=== PATIENT | male | born 1980 | race Caucasian/White ===

== ENCOUNTER → 2016-12-03 | Outpatient (CLI) | payer OTHER ==
--- NOTE | 2016-12-03 16:24 | MR ---
EXAMINATION TYPE: MR lumbar spine wo con DATE OF EXAM: 12/03/2016 2:36 PM COMPARISON: Radiographs of the lumbar spine dated 11/01/2014 HISTORY: Low back pain TECHNIQUE: Multiplanar, multisequence images of the lumbar spine were acquired. L1-L2: Normal disc appearance without desiccation. No herniation, protrusion or disc bulging. No ca nal stenosis is present. Foramina are patent bilaterally. L2-L3: Normal disc appearance without desiccation. No herniation, protrusion or disc bulging. No ca nal stenosis is present. Foramina are patent bilaterally. L3-L4: Normal disc appearance without desiccation. No herniation, protrusion or disc bulging. No ca nal stenosis is present. Foramina are patent bilaterally. L4-L5: Normal disc appearance without desiccation. No herniation, protrusion or disc bulging. No ca nal stenosis is present. Foramina are patent bilaterally. L5-S1: There is a left central disc herniation, extrusion, extending cranially approximately 5 mm. No free fragment is seen. There is resultant mild central canal stenosis. This disc herniation does not affect the exiting nerve root and abuts the forming nerve root. Herniation is superimposed upon a br oad-based disc bulge. Disc desiccation of the annulus is seen. No evidence of neuroforaminal stenosis . Lumbar segments are intact. No paraspinal masses are identified. Conus medullaris has a normal appe arance. Bone marrow signal is unremarkable IMPRESSION: Left central disc herniation at L5-S1 resulting in mild spinal canal stenosis.
== END | disposition home or self-care (01) ==
LOC: RADMRIMAIN 14:06
PROVIDERS: ATTEND Nurse Practitioner Acute Care
DX: M48.07 Spinal stenosis, lumbosacral region (principal); M51.27 Other intervertebral disc displacement, lumbosacral region
CPT/HCPCS: 72148

== ENCOUNTER → 2019-04-10 | Outpatient (CLI) | payer OTHER ==
--- NOTE | 2019-04-10 13:15 | XR ---
Chest x-ray with right RIBS HISTORY: Right rib pain for 3 days Frontal view of the chest, 4 views of the right ribs submitted. No comparisons There is elevation of the right hemidiaphragm. No evident airspace disease, pneumothorax, or pleural effusion. Cardiomediastinal silhouette, pulmonary vascularity and anjali within normal limits. No evide nt displaced rib fracture IMPRESSION: No acute rib abnormality, bone scan may be of benefit. Elevated right hemidiaphragm.
== END | disposition home or self-care (01) ==
LOC: RADXRYALE 09:37
PROVIDERS: ATTEND Internal Medicine
DX: Q79.1 Other congenital malformations of diaphragm (principal)

== ENCOUNTER → 2019-04-30 | Outpatient (CLI) | payer SELFPAY ==
--- NOTE | 2019-04-30 07:47 | US ---
EXAMINATION TYPE: US abdomen complete DATE OF EXAM: 04/30/2019 COMPARISON: None CLINICAL HISTORY: J98.6 Elevated hemidiaphragm. Patient states having a MRI that showed a possible re nal cyst EXAM MEASUREMENTS: Liver Length: 14.4 cm Gallbladder Wall: 0.2 cm CBD: 0.5 cm Spleen: 9.8 cm Right Kidney: 11.1 x 5.8 x 5.4 cm Left Kidney: 11.7 x 4.8 x 6.4 cm Pancreas: Tail obscured by overlying bowel gas Liver: appears slightly heterogenous with diminished visualization of the portal triads. This does l imit evaluation for hepatic masses. Gallbladder: wnl Evidence for sonographic Medina's sign: neg CBD: wnl Spleen: wnl Right Kidney: No hydronephrosis or masses seen Left Kidney: No hydronephrosis or masses seen Upper IVC: wnl Abd Aorta: wnl The liver is heterogenous. The intrahepatic portion of the IVC and proximal abdominal aorta are with in normal limits. There is no evidence of cholelithiasis. Common bile duct is unremarkable. The vi sualized portions of the pancreas are homogenous. The spleen is unremarkable. Kidneys are symmetric and free of hydronephrosis. No renal lesions are seen. IMPRESSION: 1. Slightly heterogenous hepatic echotexture, which most commonly relates to hepatic steatosis. Corre lation with liver function tests is recommended. 2. No renal cyst is seen on today's examination or suspicious renal mass. No hydronephrosis.
== END | disposition home or self-care (01) ==
LOC: RADUSWWP 06:54
PROVIDERS: ATTEND Internal Medicine
DX: J98.6 Disorders of diaphragm (principal)
CPT/HCPCS: 76700

== ENCOUNTER → 2021-06-18 | Outpatient (CLI) | payer OTHER | END | disposition home or self-care (01) | LOC: LABWHC1 11:05 | PROVIDERS: ATTEND Internal Medicine | DX: Z20.822 Contact with and (suspected) exposure to COVID-19 (principal) | CPT/HCPCS: U0003; C9803; U0005 ==

== ENCOUNTER → 2021-08-28 | Outpatient (CLI) | payer OTHER ==
[2021-08-28 18:16] LABS: Basophils # (A) 0.05 X 10*3/uL (0.00-0.10); Basophils % (A) 0.7 %; Eosinophils # (A) 0.19 X 10*3/uL (0.04-0.35); Eosinophils % (A) 2.7 %; HCT 53.7 % (39.6-50.0); HGB 17.1 g/dL (13.0-17.0); Lymphocytes # (A) 1.26 X 10*3/uL (0.90-5.00); Lymphocytes % (A) 17.6 %; MCH 29.3 pg (27.0-32.0); MCHC 31.8 g/dL (32.0-37.0); MCV 92.1 fL (80.0-97.0); Mean Platelet Volume 11.6 fL (9.5-12.2); Monocytes # (A) 0.75 X 10*3/uL (0.20-1.00); Monocytes % (A) 10.5 %; Neutrophils # (A) 4.87 X 10*3/uL (1.80-7.70); Neutrophils % (A) 68.1 %; Platelet Count 210 X 10*3/uL (140-440); RBC 5.83 X 10*6/uL (4.40-5.60); RDW 13.7 % (11.5-14.5); WBC 7.15 X 10*3/uL (4.50-10.00)
[2021-08-28 20:25] LABS: African American GFR (CKD) 106.1 (60.0-200.0); Albumin 4.3 g/dL (3.8-4.9); Albumin/Globulin Ratio 1.62 (1.60-3.17); Anion Gap 15.8 mmol/L (10.00-18.00); BUN/Creat Ratio 15.49 Ratio (12.00-20.00); Blood Urea Nitrogen 15.8 mg/dL (9.0-27.0); Calcium 9.2 mg/dL (8.7-10.3); Carbon Dioxide 20.7 mmol/L (20.0-27.5); Globulin 2.6 g/dL (1.6-3.3); Non-African American GFR(CKD) 91.5 (60.0-200.0); Potassium 4.3 mmol/L (3.5-5.5); T4, Free (Free Thyroxine) 0.9 ng/dL (0.800-1.800); Total Bilirubin 0.4 mg/dL (0.30-1.20); Total Protein 6.9 g/dL (6.2-8.2)
== END | disposition home or self-care (01) ==
LOC: LABWHC1 12:30
PROVIDERS: ATTEND Nurse Practitioner Acute Care
DX: Z51.81 Encounter for therapeutic drug level monitoring (principal); E55.9 Vitamin D deficiency, unspecified; R53.83 Other fatigue
CPT/HCPCS: 36415; 80053; 82306; 82607; 84207; 84439; 84443; 84481; 85025